=== PATIENT | female | born 1990 | race African-American/Black ===

== ENCOUNTER 2016-11-01 12:19 | Emergency (ER) | payer OTHER ==
[~2016-11-01] VITALS: Ht 170.2 cm; Wt 47.6 kg
[2016-11-01 12:19] VITALS: BP 112/18
[2016-11-01] MEDS ORDERED: DOCUSATE SODIUM LIQ 100 MG/10 ML UDC ONE (12:41)
[2016-11-01] MEDS ORDERED: DOCUSATE SODIUM LIQ 100 MG/10 ML UDC NG ONE (13:00)
== END 2016-11-01 13:47 | disposition home or self-care (01) ==
LOC: ER 12:21
DX: H61.21 Impacted cerumen, right ear (principal); J06.9 Acute upper respiratory infection, unspecified; H60.91 Unspecified otitis externa, right ear; H66.91 Otitis media, unspecified, right ear; J45.909 Unspecified asthma, uncomplicated; F20.9 Schizophrenia, unspecified; F31.9 Bipolar disorder, unspecified; F17.200 Nicotine dependence, unspecified, uncomplicated
CPT/HCPCS: 69209; 99283; A4606; Z7610

== ENCOUNTER 2016-11-15 13:07 | Emergency (ER) | payer OTHER ==
[~2016-11-15] VITALS: Ht 167.6 cm; Wt 47.6 kg
--- NOTE | 2016-11-15 13:26 | NUR ---
Presents self to ed for vaginal bleeding x 3 days. Patient is [id number]. Pt suspected miscarriage, however pt was not test for yet. lmp 10/03/16. vss. Urine sample sent to lab
[2016-11-15 13:45] LABS: BASOPHILS # (AUTO) 0.1 /CMM (0.0-0.2); EOSINOPHILS # (AUTO) 0.4 /CMM (0.0-0.7); EOSINOPHILS % (AUTO) 5.9 % (0.0-6.0); HEMATOCRIT 37 % (33-45); HEMOGLOBIN 12.5 g/dL (11.5-14.8); LYMPHOCYTES # (AUTO) 3.2 /CMM (0.8-4.8); MEAN CORPUSCULAR HEMOGLOBIN 31 PG (26.0-33.0); MEAN CORPUSCULAR HGB CONC 34 g/dl (31.0-36.0); MEAN CORPUSCULAR VOLUME 93 fL (82-100); MONOCYTES # (AUTO) 0.5 /CMM (0.1-1.30); MONOCYTES % (AUTO) 7.6 % (2.0-12.0); NEUTROPHILS # (AUTO) 2.1 /CMM (1.8-8.9); NEUTROPHILS % (AUTO) 32.5 % (43.0-81.0); PLATELET COUNT (AUTO) 192 /CMM (150-450); RDW COEFFICIENT OF VARIATION 12.4 (11.5-15.0); RED BLOOD CELL COUNT(AUTO) 4.02 MIL/uL (4.0-5.2); WHITE BLOOD COUNT (AUTO) 6.3 K/uL (4.3-11.0)
[2016-11-15 13:51] LABS: CALCIUM, SERUM 8.5 mg/dL (8.5-10.1); CREATININE 1.1 mg/dL (0.6-1.3); POTASSIUM 4.1 mmol/L (3.5-5.1)
[2016-11-15 14:43] LABS: APPEARANCE,URINE Cloudy (CLEAR); BILIRUBIN,URINE Negative (NEGATIVE); BLOOD, URINE Large Ery/uL (NEGATIVE); COLOR,URINE Red (YELLOW); KETONES,URINE Negative (NEGATIVE); LEUKOCYTE ESTERASE ,URINE Negative (NEGATIVE); NITRITE, URINE Negative (NEGATIVE); PH,URINE 5.5 (5.0-8.0); PROTEIN,URINE 100 mg/dl (NEGATIVE); UGLUCOSE Negative (NEGATIVE); UROBILINOGEN,URINE 0.2 EU/dL (0.2)
[2016-11-15 14:45] LABS: PREGNANCY TEST URINE QUAL NEGATIVE (NEGATIVE)
[2016-11-15 15:02] LABS: BACTERIA,URINE Few /HPF (None Seen); RBC,URINE TOO NUMEROUS TO COUN /HPF (0-2); SQUAMOUS EPITHELIAL CELL,UR Few /HPF (None Seen); WBC,URINE 0-2 /HPF (0-3)
[2016-11-15 15:17] VITALS: BP 105/57
--- NOTE | 2016-11-15 15:17 | NUR ---
Patient discharged to home in stable condition. Written and verbal after care instructions given. Patient verbalizes understanding of instruction.
== END 2016-11-15 15:18 | disposition home or self-care (01) ==
LOC: ER 13:10
DX: N93.8 Other specified abnormal uterine and vaginal bleeding (principal); J45.909 Unspecified asthma, uncomplicated; F31.9 Bipolar disorder, unspecified; F20.9 Schizophrenia, unspecified; F17.200 Nicotine dependence, unspecified, uncomplicated
CPT/HCPCS: 36415; 76856; 80048; 81001; 84702; 84703; 85025; 99285; A4606; Z7610; 81000-TC